=== PATIENT | female | born 1995 | race Caucasian/White ===

== ENCOUNTER 2019-07-18 16:27 | Emergency (ER) | payer SELFPAY ==
[~2019-07-18] VITALS: Ht 180.3 cm; Wt 75.0 kg
[2019-07-18 16:29] VITALS: TEMP 98.5
[2019-07-18] MEDS ORDERED: FLEXERIL 1010 MG/TAB PO (16:57)
[2019-07-18] MEDS ORDERED: ROBAXIN 75750 MG/TAB PO (17:21)
[2019-07-18 18:30] VITALS: BP 129/77; PULSE 84
== END 2019-07-18 18:30 | disposition home or self-care (01) ==
LOC: COL.ER 16:27
DX: M54.2 Cervicalgia (principal)
CPT/HCPCS: J1170; J1885; J2405